=== PATIENT | female | born 1985 | race Caucasian/White ===

== ENCOUNTER 2017-02-19 13:13 | Outpatient (CLI) | payer BC ==
[~2017-02-19] VITALS: Ht 152.4 cm; Wt 63.3 kg
[2017-02-19 14:05] VITALS: Ht 152.4 cm; Wt 63.3 kg
[2017-02-19 14:07] VITALS: BP 116/73; PULSE 83; RESP 18
--- NOTE | 2017-02-19 14:16 | RADRPT ---
PROCEDURE: US OB biophysical profile. CLINICAL INDICATION: decreased movements TECHNIQUE: Multiple sonographic images of the pelvis were obtained. The images were reviewed on a PACS workstation. COMPARISON: No prior studies are available for comparison. FINDINGS: There is a single viable intrauterine gestation. Cardiac activity is present with 161 beats per min subha. There is a vertex presentation. The placenta is anterior. There is no evidence of placental abruption. There is a normal amount of amniotic fluid with an MARYANN = 9.0 cm. Biophysical profile: movement 2/2 tone 2/2. breathing 2/2 MARYANN 2/2 Total 11/12 RPTAT: AA . IMPRESSION: Normal biophysical profile. . .Toy Lima MD, MD Date Time Electronically viewed and signed by .Toy Lima MD, MD on 02/19/2017 14:15 .S/
[2017-02-19] MEDS ORDERED: FERR325T5 PO (14:39)
[2017-02-19] MEDS ORDERED: PREN-93 PO (14:39)
[2017-02-19] MEDS ORDERED: [UNRECOGNIZED DRUG - CODE] PO (14:41)
--- NOTE | 2017-02-19 16:20 | PN ---
Triage Information Date/Time 02/19/2017 Reason for visit: R/o oligohydramnios Weeks of Gestation 33 weeks and 5 days /Para Diabetes: none Additional information 31 years old with IUP at 33 weeks and 5 days presented for follow up of AF. Noted to have MARYANN : 8 in the office. Seen in [facility]. Denies any LOF, vaginal bleeding, Decreased movement or any other complaints. Has history of Hypothyrodisms. MARYANN in the last visit yesterday was checked and noted to be 8 , here today was sent for repeat. Denies any complaint. Has history of chlamydia and Hypothyrodism in . On synthyroid. well controlled and asymptomatic. S/p treatment for chlamydia traveled to [facility]. her Zika labs were negative' Objective Vital Signs Date Time Temp Pulse Resp B/P Pulse Ox O2 Delivery O2 Flow Rate FiO2 02/19/17 14:07 98.5 83 18 116/73 Room Air Heart Rate: 130's Contractions: None Exam GA: A*O, NAd Abdomen: Soft, non tender, Gravid. Fundal Height consistent with date NST: Cat 1 MARYANN: 9 No contraction. Results/Medications Imaging Results PROCEDURE: US OB biophysical profile. CLINICAL INDICATION: decreased movements TECHNIQUE: Multiple sonographic images of the pelvis were obtained. The images were reviewed on a PACS workstation. COMPARISON: No prior studies are available for comparison. FINDINGS: There is a single viable intrauterine gestation. Cardiac activity is present with 161 beats per minute. There is a vertex presentation. The placenta is anterior. There is no evidence of placental abruption. There is a normal amount of amniotic fluid with an MARYANN = 9.0 cm. Biophysical profile: movement 2/2 tone 2/2. breathing 2/2 MARYANN 2/2 Total 11/12 RPTAT: AA . IMPRESSION: Normal biophysical profile. Disposition: Discharge Assessment/Plan Follow up in 2-3 days with [facility] clinic Strict PTL precaution and FKC discussed Patient verbalized understanding RT Triage PRN any other concerns KAREN VEGA MD Feb 19, 2017 16:20
--- NOTE | 2017-02-19 19:35 | TRIAGE ---
OB Triage Datetime Report Generated by CPN: 02/19/2017 19:35 Datetime: 02/19/2017 14:36 Labor Evaluation Frequency: none Heart Rate FHR Baseline Rate: 145 Monitor Mode: External US Variability: Moderate 6-25 bpm Accelerations: 15X15 Decelerations: None Category: Category I Pain Presence: None/Denies Pain Type: N/A Vaginal Exam Membrane Status: Intact Datetime: 02/19/2017 14:12 Monitor Mode: External US Comments: BPP COMPLETE Datetime: 02/19/2017 13:57 Comments: monitor off for bpp Datetime: 02/19/2017 13:55 Comments: US HERE FOR BPP Datetime: 02/19/2017 13:53 Stage of : OB Triage Labor Evaluation Frequency: NONE Monitor Mode: External Heart Rate FHR Baseline Rate: 140 Monitor Mode: External US Variability: Moderate 6-25 bpm Accelerations: None Decelerations: None Pain Assessment Pain Scale: 0 Pain Presence: None/Denies Pain Type: N/A Pain Goal: 0 Datetime: 02/19/2017 13:42 Stage of : OB Triage Temperature Route: Oral Labor Evaluation Frequency: NONE Monitor Mode: External Contraction Comments: PT DENIES UCS Heart Rate FHR Baseline Rate: 145 Monitor Mode: External US Variability: Moderate 6-25 bpm Accelerations: None Decelerations: None Category: Category I Pain Assessment Pain Scale: 0 Pain Presence: None/Denies Pain Type: N/A Pain Goal: 0 Datetime: 02/19/2017 13:39 Time of Arrival: 02/19/2017 13:06 EGA: 33.5 Arrived By: Ambulatory Arrived From: Dr. Wilson Chief Complaint: US TODAY AT [facility]-MARYANN 8;SENT FOR BPP _ NST Movement: Present Contractions: Denies/Absent Rupture of Membranes: Denies Vaginal Bleeding: None Vaginal Discharge: Denies Recent Sexual Intercouse: Denies Abdominal Trauma: Not Applicable Patient Complaints: None Provider Notified: HAO Initial Plan: NST/BPP Datetime: 02/19/2017 13:36 Stage of : OB Triage Assessment Type: Admission Assessment Maternal Assessment Level of Consciousness: Fully Conscious DTR's/Clonus: DTRs 2+; No Clonus Headache: Denies Blurred Vision: No Respiratory Effort: Unlabored; Regular Rhythm; Equal Expansion Breath Sounds, Left: Clear and Equal Breath Sounds, Right: Clear and Equal Nausea/Vomiting: Denies RUQ Epigastric Pain: Denies Lower Extremities Edema: None Degree: None Upper Extremities Edema: None Degree: None Facial Edema: None Fall Risk Assessment History of Falling: (0) No Secondary Diagnosis: (15) Yes (Annotations: OLIGO/HYPOTHROID) Ambulatory Aid: (0) Bedrest/Nurse Assist IV Therapy: (0) No Gait: (0) Normal/Bedrest/Immobile Mental Status: (0) Oriented to Own Ability Fall Score: 15 Fall Risk Score Definition: No Risk: No action required Pain Assessment Pain Scale: 0 Pain Presence: None/Denies Pain Type: N/A Vaginal Exam Membrane Status: Intact
== END 2017-02-19 15:21 | disposition home or self-care (01) ==
LOC: L-D 13:13 → OBT 13:13
PROVIDERS: ATTEND Obstetrics & Gynecology
DX: O36.8130 Decreased fetal movements, third trimester, not applicable or unspecified (principal); Z3A.33 33 weeks gestation of pregnancy
CPT/HCPCS: 76818; Z7500; G0463

== ENCOUNTER 2017-04-08 12:22 | Inpatient (IN) | END 2017-04-11 17:10 | disposition home or self-care (01) | DRG 775 ==